=== PATIENT | male | born 1965 | race Hispanic/Latino ===

== ENCOUNTER → 2019-10-13 | Day surgery (SDC) | payer OTHER ==
[~2019-10-13] MED LIST: FENTANYL CITRATE/PF 100MCG/2 ML INJ ONE; LISINOPRIL10 MG PO; METFORMIN HCL500 MG PO; MIDAZOLAM HCL 2 MG/2 ML VIAL ONE; OMEPRAZOLE40 MG PO; OR PHACO EYE KIT ONE; PREOP PHACO EYE KIT ONE
[2019-10-13 11:20] VITALS: BP 118/73
== END | disposition home or self-care (01) ==
LOC: OR 06:58
PROVIDERS: ATTEND Ophthalmology
DX: H25.11 Age-related nuclear cataract, right eye (principal); I10 Essential (primary) hypertension; E11.9 Type 2 diabetes mellitus without complications; F41.9 Anxiety disorder, unspecified; Z01.812 Encounter for preprocedural laboratory examination; Z11.59 Encounter for screening for other viral diseases; Z79.84 Long term (current) use of oral hypoglycemic drugs
CPT/HCPCS: 36415; 66984; 82948; J2250; J3010; U0002; V2632